=== PATIENT | female | born 1955 | race Caucasian/White ===

== ENCOUNTER → 2020-05-12 | Outpatient (BNVA) | payer OTHER, SELFPAY | PROVIDERS: Visit Provider Internal Medicine ==

== ENCOUNTER 2020-06-19 11:47 | Outpatient (REF) | payer OTHER, SELFPAY ==
[2020-06-19 11:50] VITALS: BP 112/68; PULSE 58; RESP 16
[2020-06-19 12:25] VITALS: BP 146/69; PULSE 113; RESP 16; TEMP 36.7; O2SAT 98
--- NOTE | 2020-06-19 13:08 | PM.OP ---
Brief Operative Note Date of Service: 06/19/20 Pre-op diagnosis: Lipoma left forearm Post-op diagnosis: same Procedure: Excision lipoma left forearm Implants: none Surgeon: Keny Bloom MD Anesthesia: local Estimated blood loss (mL): 2 Pathology: other (lipoma left wrist) Condition: stable Disposition: other (back to work)
--- NOTE | 2020-06-19 13:10 | P.OP_ITS ---
Operative Note Operative Note Date of Service: 06/19/20 Narrative: Preoperative diagnosis: Lipoma left forearm Postoperative disgnosis: same Procedure: excision lipoma left forearm Surgeon: Keny Bloom MD Measurement Supervisor: none Anesthesia: Local Findings: 1.5 cm lipoma left wrist Specimen: Lipoma left wrist Complication: none Procedure details: Patient placed in a supine position. After assuring informed consent and confirming the site of surgery, the skin was prepped with betadine and draped in a sterile fashion. Local was infiltrated over the lesion and an incision made with a #15 blade. The incision was continued down into the subcutaneous tissue and up to the lipoma. A combination of blunt and sharp dissection was used to excise the lesion. The lesion was sent to pathology for further evaluation. Skin was closed with 4-0 Nylon suture. Sterile dressings were applied including 2x2 gauze and tegaderm. Patient tolerated the procedure well and was discharged in stable condition.
== END 2020-06-19 11:48 | disposition home or self-care (01) ==
LOC: HO.MS 11:47
PROVIDERS: PCP Family Medicine; Visit Provider Surgery
PROC: (CPT 11402; principal; 2020-06-19 12:00)
DX: D17.22 Benign lipomatous neoplasm of skin and subcutaneous tissue of left arm (principal); Z88.0 Allergy status to penicillin
CPT/HCPCS: 11402; 88304

== ENCOUNTER 2020-07-23 11:33 | Outpatient (REF) | payer OTHER, SELFPAY ==
[2020-07-25 14:02] LABS: SARS-COV-2 PCR UMBRL NOT DETECTED
== END 2020-07-23 11:34 | disposition home or self-care (01) ==
LOC: HO.EMPCOV 11:33
PROVIDERS: Visit Provider Internal Medicine
DX: Z20.828 Contact with and (suspected) exposure to other viral communicable diseases (principal)
CPT/HCPCS: C9803; U0003

== ENCOUNTER 2021-01-28 07:46 | Outpatient (REF) | payer OTHER, SELFPAY ==
[2021-01-28 08:24] LABS: MANUAL DIFF FLAG NO
[2021-01-28 08:38] LABS: Basophils Percent Auto 0.4 % (0-2); Eosinophils Absolute Auto 0.1 X10*3/uL (0.0-0.4); Eosinophils Percent Auto 1.8 % (0-4); Hematocrit 38.8 % (37-47); Hemoglobin 12.4 g/dl (12.0-16.0); Imm Gran Abs Auto 0.02 X10*3/uL (0.00-0.03); Imm Gran Pct Auto 0.4 % (0.0-0.4); Lymphocytes Absolute Auto 1.4 X10*3/uL (1.2-4.9); Lymphocytes Percent Auto 24.6 % (20-40); Mean Corpuscular Volume 81.3 fL (80-98); Mean Platelet Volume 10.8 fL (9.4-12.3); Monocytes Absolute Auto 0.4 X10*3/uL (0.1-1.2); Monocytes Percent Auto 6.6 % (2-11); Neutrophils Absolute Auto 3.7 X10*3/uL (2.0-8.3); Neutrophils Percent Auto 66.2 % (45-73); Platelet Count 190 X10*3/uL (160-400); Red Blood Count 4.77 X10*6/uL (4.20-5.50); Red Cell Distribution Width 13.6 % (11.0-16.0); White Blood Count 5.6 X10*3/uL (4.8-10.8)
[2021-01-28 08:40] LABS: Estimated Average Glucose 131 mg/dL; Hemoglobin A1c % 6.2 %
[2021-01-28 08:57] LABS: Alanine Aminotransferase 15 U/L (0-31); Albumin Level 4.3 g/dL (3.5-5.0); Alkaline Phosphatase 62 U/L (39-117); Anion Gap 12 (12-20); Aspartate Amino Transferase 16 U/L (5-31); Bilirubin Total 0.5 mg/dL (0.0-1.0); Blood Urea Nitrogen 21 mg/dL (9-16); Calcium 9.5 mg/dL (8.4-10.2); Carbon Dioxide 27 mmol/L (22-29); Chloride 109 mmol/L (96-108); Cholesterol 146 mg/dL; Estimated Glomerular Filt Rate > 60; Glucose Random 130 mg/dL (60-115); HDL Cholesterol 37 mg/dL; LDL Cholesterol Calculated 55 mg/dl; Potassium 3.6 mmol/L (3.3-5.1); Sodium 144 mmol/L (135-145); Total Protein 6.8 g/dL (6.5-8.0); Triglycerides 270 mg/dL
[2021-01-28 09:04] LABS: Vitamin D 25-OH Total 25.3 ng/mL (>30)
[2021-01-28 10:48] LABS: Creatinine Urine 173.74 mg/dL; Microalbum/Creatinine Ratio Ur 28.7 ug/mg cr
== END 2021-01-28 07:47 | disposition home or self-care (01) ==
LOC: HO.LAB 07:46
PROVIDERS: PCP Family Medicine; Visit Provider Family Medicine
DX: Z00.00 Encounter for general adult medical examination without abnormal findings (principal); E03.9 Hypothyroidism, unspecified; E55.9 Vitamin D deficiency, unspecified; E78.5 Hyperlipidemia, unspecified; R73.01 Impaired fasting glucose; I11.9 Hypertensive heart disease without heart failure
CPT/HCPCS: 36415; 80053; 80061; 82043; 82306; 83036; 84443; 85025

== ENCOUNTER → 2021-11-12 09:43 | Outpatient (BNVA) | payer OTHER, SELFPAY | PROVIDERS: PCP Family Medicine; Visit Provider Internal Medicine | DX: Z13.89 Encounter for screening for other disorder (principal) | CPT/HCPCS: 73630; 99202 ==

== ENCOUNTER 2022-04-01 07:59 | Outpatient (REF) | payer OTHER, SELFPAY ==
[2022-04-01 08:29] LABS: MANUAL DIFF FLAG NO
[2022-04-01 08:56] LABS: Basophils Percent Auto 0.4 % (0-2); Eosinophils Absolute Auto 0.1 X10*3/uL (0.0-0.4); Eosinophils Percent Auto 2.2 % (0-4); Hematocrit 36.1 % (37.0-47.0); Imm Gran Abs Auto 0.02 X10*3/uL (0.00-0.03); Imm Gran Pct Auto 0.4 % (0.0-0.4); Lymphocytes Absolute Auto 1.1 X10*3/uL (1.2-4.9); Lymphocytes Percent Auto 22.8 % (20-40); Mean Corpuscular HGB Conc 33.2 g/dl (31.0-35.0); Mean Corpuscular Hemoglobin 26.3 pg (27.0-33.0); Mean Platelet Volume 10.1 fL (9.4-12.3); Monocytes Absolute Auto 0.3 X10*3/uL (0.1-1.2); Monocytes Percent Auto 6.5 % (2-11); Neutrophils Absolute Auto 3.4 x10*3/uL (2.0-8.3); Neutrophils Percent Auto 67.7 % (45-73); Platelet Count 188 X10*3/uL (160-400); Red Blood Count 4.57 X10*6/uL (4.20-5.50); Red Cell Distribution Width 13.9 % (11.0-16.0)
[2022-04-01 09:05] LABS: Estimated Average Glucose 134 mg/dL; Hemoglobin A1c % 6.3 %
[2022-04-01 09:29] LABS: Alanine Aminotransferase 26 U/L (0-31); Alkaline Phosphatase 52 U/L (39-117); Anion Gap 15 (12-20); Aspartate Amino Transferase 24 U/L (5-31); Bilirubin Total 0.6 mg/dL (0.0-1.0); Blood Urea Nitrogen 10 mg/dL (9-16); Calcium 9.1 mg/dL (8.4-10.2); Carbon Dioxide 25 mmol/L (22-29); Chloride 108 mmol/L (96-108); Cholesterol 213 mg/dL; Estimated Glomerular Filt Rate > 60; Glucose Random 117 mg/dL (60-115); HDL Cholesterol 33 mg/dL; LDL Cholesterol Calculated 111 mg/dl; Potassium 3.7 mmol/L (3.3-5.1); Sodium 144 mmol/L (135-145); Total Protein 6.7 g/dL (6.5-8.0); Triglycerides 348 mg/dL
[2022-04-01 09:54] LABS: TSH reflex Free T4 5.45 uIU/mL (0.32-4.0)
[2022-04-01 11:17] LABS: Free T4 (Free Thyroxine) 0.91 ng/dL (0.71-1.85)
[2022-04-01 14:41] LABS: Creatinine Urine 217.17 mg/dL; Microalbum/Creatinine Ratio Ur 42.3 ug/mg cr
[2022-04-07 21:06] LABS: VITAMIN D (1,25 OH) D3 12 pg/mL; Vit D (1,25-Dihydroxy) Total 50 pg/mL (18-72); Vitamin D (1,25 OH) D2 38 pg/mL
== END 2022-04-01 08:00 | disposition home or self-care (01) ==
LOC: HO.LAB 07:59
PROVIDERS: PCP Family Medicine; Visit Provider Family Medicine
DX: Z00.00 Encounter for general adult medical examination without abnormal findings (principal); E03.9 Hypothyroidism, unspecified; E55.9 Vitamin D deficiency, unspecified; E78.5 Hyperlipidemia, unspecified; I10 Essential (primary) hypertension; R73.01 Impaired fasting glucose
CPT/HCPCS: 36415; 80053; 80061; 82043; 82652; 83036; 84439; 84443; 85025

== ENCOUNTER 2022-10-21 08:19 | Outpatient (REF) | payer OTHER, SELFPAY ==
[2022-10-21 08:30] LABS: MANUAL DIFF FLAG NO
[2022-10-21 08:55] LABS: Basophils Percent Auto 0.5 % (0-2); Eosinophils Absolute Auto 0.1 X10*3/uL (0.0-0.4); Hematocrit 40.9 % (37.0-47.0); Hemoglobin 13.4 g/dl (12.0-16.0); Imm Gran Abs Auto 0.02 X10*3/uL (0.00-0.03); Imm Gran Pct Auto 0.3 % (0.0-0.4); Lymphocytes Absolute Auto 1.3 X10*3/uL (1.2-4.9); Lymphocytes Percent Auto 22.9 % (20-40); Mean Corpuscular HGB Conc 32.8 g/dl (31.0-35.0); Mean Corpuscular Hemoglobin 26.6 pg (27.0-33.0); Mean Corpuscular Volume 81.3 fL (80.0-98.0); Mean Platelet Volume 10.3 fL (9.4-12.3); Monocytes Absolute Auto 0.4 X10*3/uL (0.1-1.2); Monocytes Percent Auto 6.5 % (2-11); Neutrophils Percent Auto 68.8 % (45-73); Platelet Count 221 X10*3/uL (160-400); Red Blood Count 5.03 X10*6/uL (4.20-5.50); Red Cell Distribution Width 13.7 % (11.0-16.0); White Blood Count 5.8 X10*3/uL (4.8-10.8)
[2022-10-21 09:07] LABS: Estimated Average Glucose 131 mg/dL; Hemoglobin A1c % 6.2 %
[2022-10-21 09:39] LABS: Alanine Aminotransferase 26 U/L (0-31); Albumin Level 4.3 g/dL (3.5-5.0); Alkaline Phosphatase 59 U/L (39-117); Anion Gap 14 (12-20); Aspartate Amino Transferase 21 U/L (5-31); Bilirubin Total 0.5 mg/dL (0.0-1.0); Blood Urea Nitrogen 19 mg/dL (9-16); Calcium 9.6 mg/dL (8.4-10.2); Carbon Dioxide 27 mmol/L (22-29); Chloride 105 mmol/L (96-108); Cholesterol 227 mg/dL; Estimated Glomerular Filt Rate > 60; Glucose Random 126 mg/dL (60-115); HDL Cholesterol 38 mg/dL; LDL Cholesterol Calculated 146 mg/dl; Sodium 142 mmol/L (135-145); Total Protein 7.1 g/dL (6.5-8.0); Triglycerides 217 mg/dL
[2022-10-21 09:43] LABS: Creatinine Urine 272.36 mg/dL
[2022-10-21 10:00] LABS: TSH reflex Free T4 3.86 uIU/mL (0.32-4.0); Vitamin D 25-OH Total 29.7 ng/mL (>30)
== END 2022-10-21 08:20 | disposition home or self-care (01) ==
LOC: HO.LAB 08:19
PROVIDERS: PCP Family Medicine; Visit Provider Family Medicine
DX: E03.9 Hypothyroidism, unspecified (principal); E55.9 Vitamin D deficiency, unspecified; E78.5 Hyperlipidemia, unspecified; R73.01 Impaired fasting glucose; I10 Essential (primary) hypertension
CPT/HCPCS: 36415; 80053; 80061; 82043; 82306; 83036; 84443; 85025

== ENCOUNTER 2022-11-04 15:50 | Outpatient (REF) | payer OTHER, SELFPAY ==
--- NOTE | ~2022-11-04 | CT_ITS ---
EXAMINATION: CT ABDOMEN AND PELVIS WITHOUT CONTRAST CLINICAL INFORMATION: Right lower quadrant pain. COMPARISON: None available. TECHNIQUE: Multidetector volumetric imaging was performed from the superior aspect of the liver through the pubic symphysis. Sagittal and coronal reformatted images were obtained on the technologist's workstation. Lack of intravenous and oral contrast limits visceral evaluation. Mild motion artifact limits evaluation as well. This CT examination was performed using dose optimization techniques as appropriate, variously including the following: *Automated exposure control *Adjustment of mA and/or kV according to patient size (this includes techniques or standardized protocols for targeted exams where dose is matched to indication/reason for exam; i.e. extremities or head) *Use of iterative reconstruction technique DLP: 595 mGy-cm FINDINGS: LUNG BASES: The visualized lung bases are unremarkable. LIVER, GALLBLADDER, AND BILIARY TREE: Diffuse decreased hepatic attenuation and enlargement. PANCREAS: Unremarkable. SPLEEN: 16.5 cm in cc dimension without focal abnormality. ADRENAL GLANDS: Unremarkable. KIDNEYS AND URETERS: The kidneys are normal in size, shape, and attenuation. No hydronephrosis, hydroureter, or calculi seen. No perinephric stranding. BLADDER: Unremarkable. GASTROINTESTINAL TRACT: The stomach and small bowel are unremarkable. No evidence for acute appendicitis. The colon shows mild to moderate diverticulosis most pronounced distally. Mild to moderate mural thickening is seen most pronounced in the mid one third of the sigmoid colon surrounding a diverticulum superiorly. With mild adjacent air. And surrounding infiltrative changes. The rectum is unremarkable. ABDOMINAL WALL: Status post ventral mesh repair with a gap seen inferiorly and associated periumbilical bulging with fat. LYMPH NODES: No lymphadenopathy. VASCULAR: Unremarkable. PELVIC VISCERA: Unremarkable. OSSEOUS STRUCTURES: Unremarkable. CT/CT abdomen pelvis wo IV con IMPRESSION: 1. Mild to moderate sigmoid diverticulosis with evidence for acute diverticulitis in the mid one third of the sigmoid colon. Mild air is seen adjacent to the associated diverticulum superiorly suggesting a contained microperforation. No anup pneumoperitoneum or abscess formation. 2. Hepatic steatosis and hepatomegaly. 3. Splenomegaly. 4. Status post ventral abdominal wall mesh repair with a gap inferiorly and moderate periumbilical bulging with fat. No associated abnormality.
== END 2022-11-04 15:51 | disposition home or self-care (01) ==
LOC: HO.CT 15:50
PROVIDERS: PCP Family Medicine; Visit Provider Surgery
DX: R10.31 Right lower quadrant pain (principal)
CPT/HCPCS: 74176

== ENCOUNTER 2023-03-24 08:23 | Outpatient (REF) | payer OTHER, SELFPAY ==
[2023-03-24 09:11] LABS: MANUAL DIFF FLAG NO
[2023-03-24 09:55] LABS: Basophils Percent Auto 0.7 % (0-2); Eosinophils Absolute Auto 0.1 X10*3/uL (0.0-0.4); Eosinophils Percent Auto 1.8 % (0-4); Hematocrit 39.1 % (37.0-47.0); Hemoglobin 12.9 g/dl (12.0-16.0); Imm Gran Abs Auto 0.02 X10*3/uL (0.00-0.03); Imm Gran Pct Auto 0.4 % (0.0-0.4); Lymphocytes Absolute Auto 1.3 X10*3/uL (1.2-4.9); Lymphocytes Percent Auto 22.7 % (20-40); Mean Corpuscular Hemoglobin 26.4 pg (27.0-33.0); Monocytes Absolute Auto 0.3 X10*3/uL (0.1-1.2); Monocytes Percent Auto 5.4 % (2-11); Neutrophils Absolute Auto 3.9 x10*3/uL (2.0-8.3); Platelet Count 202 X10*3/uL (160-400); Red Blood Count 4.89 X10*6/uL (4.20-5.50); White Blood Count 5.7 X10*3/uL (4.8-10.8)
[2023-03-24 10:05] LABS: Estimated Average Glucose 126 mg/dL
[2023-03-24 10:42] LABS: Alanine Aminotransferase 22 U/L (0-31); Albumin Level 4.4 g/dL (3.5-5.0); Alkaline Phosphatase 56 U/L (39-117); Anion Gap 13 (12-20); Aspartate Amino Transferase 19 U/L (5-31); Bilirubin Total 0.5 mg/dL (0.0-1.0); Blood Urea Nitrogen 17 mg/dL (9-16); Calcium 10.1 mg/dL (8.4-10.2); Carbon Dioxide 26 mmol/L (22-29); Chloride 109 mmol/L (96-108); Cholesterol 205 mg/dL; Estimated Glomerular Filt Rate > 60; Glucose Random 119 mg/dL (60-115); HDL Cholesterol 37 mg/dL; LDL Cholesterol Calculated 122 mg/dl; Sodium 144 mmol/L (135-145); Total Protein 7.5 g/dL (6.5-8.0); Triglycerides 234 mg/dL
[2023-03-24 11:00] LABS: TSH reflex Free T4 3.36 uIU/mL (0.32-4.0); Vitamin D 25-OH Total 33.4 ng/mL (>30)
[2023-03-24 18:40] LABS: Creatinine Urine 227.91 mg/dL; Microalbum/Creatinine Ratio Ur 53.9 ug/mg cr
== END 2023-03-24 08:24 | disposition home or self-care (01) ==
LOC: HO.LAB 08:23
PROVIDERS: PCP Family Medicine; Visit Provider Family Medicine
DX: E03.9 Hypothyroidism, unspecified (principal); E55.9 Vitamin D deficiency, unspecified; E78.5 Hyperlipidemia, unspecified; I10 Essential (primary) hypertension; R73.01 Impaired fasting glucose
CPT/HCPCS: 36415; 80053; 80061; 82043; 82306; 83036; 84443; 85025

== ENCOUNTER 2023-04-14 14:25 | Outpatient (AMB) | payer OTHER, SELFPAY ==
--- NOTE | 2023-04-14 14:27 | A.OFFVIS_ITS ---
Intake Vital Signs 04/14/23 14:28 Height 5 ft BP 138/87 Blood Pressure Location Lt brachial Position Sitting Pulse 64 Pulse Source Doppler Pulse Oximetry (%) 99 Oxygen Delivery Method Room Air Intake Visit Reasons: chronic cough Allergies hydrocortisone [From SOLU-CORTEF] Allergy (Unknown, Verified 04/14/23 14:34) SHORTNESS OF BREATH Penicillins [PCN] Allergy (Unknown, Verified 04/14/23 14:34) ANAPHYLAXIS clindamycin Adverse Reaction (Unknown, Verified 04/14/23 14:34) Unknown BEE STINGS Allergy (Unknown, Uncoded 04/27/20 12:18) ANAPHYLAXIS HPI chronic cough HPI Details 67-year-old lady, lifetime nonsmoker, wi th underlying history of environmental allergies and possible reactive airway disease presents complaining of cough ongoing for will weeks after recent reexposure to her allergen trigger. She denies phlegm production or significant wheezing. Patient states that previously she responded well to albuterol MDI and benzonatate. Patient denies having recent pulmonary function testing or recent allergy testing. Patient denies family history of lung disease. She denies exposure to industrial dusts. Review of Systems Const Denies daytime sleepiness, Denies excessive sweating, Denies fatigue, Denies fever(s), Denies lethargy, Denies malaise, Denies night sweats, Denies snoring and Denies weight loss Eyes Denies blurry vision and Denies itchy eyes ENT Denies nasal congestion, Denies post nasal drip, Denies sinus pain, Denies sinus pressure and Denies other ( Thrush) Card Denies chest pain, Denies pedal edema, Denies dyspnea, Denies orthopnea and Denies paroxysmal nocturnal dyspnea Resp Reports cough, Denies hemoptysis, Denies excessive phlegm production, Denies dyspnea, Denies snoring and Denies wheezing GI Denies abdominal pain and Denies heartburn Musc Denies myalgias, Denies arthralgias and Denies joint swelling Skin/Breast Denies rash Neuro Denies memory loss and Denies seizure-like activity Psych Denies abnormal sleep pattern, Denies anxiety and Denies memory loss Endo Denies excessive sweating, Denies fatigue and Denies heat intolerance Aaron/Lymph Denies easy bruising Aller/Immun Denies itchy eyes, Denies seasonal rhinorrhea and Denies wheezing Physical Exam Vital Signs: Last Vital Signs Pulse 64 04/14/23 14:28 BP 138/87 04/14/23 14:28 Pulse Ox 99 04/14/23 14:28 Oxygen Delivery Method Room Air 04/14/23 14:28 Const General: no acute distress and alert Orientation/consciousness: Other orientation findings ( oriented) HEENT Head: Yes atraumatic Eyes General: appearance normal, both eyes and all related structures Sclerae: sclerae normal EOM: EOMs intact bilaterally Neck Neck: Yes supple Lymphatic: no lymphadenopathy noted Resp Effort & Inspection: normal respiratory effort and no use of accessory muscles Auscultation: clear to auscultation bilaterally Cardio Rate: regular rate Rhythm: regular rhythm Heart sounds: no gallops, no murmurs and no rubs Skin General skin exam: other ( warm) Extrem General: No clubbing, No cyanosis and No edema Assessment & Plan Assessment & Plan (1) Environmental allergies: Code(s): Z91.09 - Other allergy status, other than to drugs and biological substances Plan: Acute exacerbation of underlying recurrent environmental allergies. Patient previously responded well to albuterol MDI and Tessalon. Will prescribe at this time. Will obtain IgE level, CBC with differential, and RAST panel for further evaluation. (2) Reactive airway disease: Code(s): J45.909 - Unspecified asthma, uncomplicated Plan: Possible underlying reactive airway disease. Will obtain full PFT for further evaluation. Orders: Orders Rast Allergen Today Z91.09 - Other allergy status, other than to drugs and biological substances Complete Blood Count Auto Diff Today Z91.09 - Other allergy status, other than to drugs and biological substances PFT pulmonary function test Today Z91.09 - Other allergy status, other than to drugs and biological substances Medications: New benzonatate 200 mg PO TID 30 days PRN 90 caps 3RF cough Z91.09 - Other allergy status, other than to drugs and biological substances albuterol sulfate 90 mcg/actuation 2 puffs inhalation Q4-6H 30 days PRN 1 ea 6RF shortness of breath or wheezing Z91.09 - Other allergy status, other than to drugs and biological substances Coding Level of Care Code New Pt Level 4 (51255) Diagnoses Environmental allergies Z91.09 Reactive airway disease J45.909
[2023-04-14 14:28] VITALS: BP 138/87; PULSE 64; O2SAT 99
== END 2023-04-14 14:46 | disposition home or self-care (01) ==
PROVIDERS: PCP Family Medicine; Visit Provider Internal Medicine Pulmonary Disease
DX: Z91.09 Other allergy status, other than to drugs and biological substances (principal); J45.909 Unspecified asthma, uncomplicated
CPT/HCPCS: 99204

== ENCOUNTER → 2023-04-14 14:25 | Outpatient (BNVA) | payer OTHER, SELFPAY | PROVIDERS: PCP Family Medicine; Visit Provider Internal Medicine Pulmonary Disease ==

== ENCOUNTER → 2023-04-19 09:51 | Outpatient (BNVA) | payer OTHER, SELFPAY | PROVIDERS: PCP Family Medicine; Visit Provider Physician Assistant | DX: Z13.89 Encounter for screening for other disorder (principal) | CPT/HCPCS: 99202 ==